=== PATIENT | male | born 1955 | race Caucasian/White ===

== ENCOUNTER → 2018-11-05 | Outpatient (CLI) | payer OTHER | END | disposition home or self-care (01) | LOC: RAD 10:35 | PROVIDERS: ATTEND Emergency Medicine | DX: R31.9 Hematuria, unspecified (principal) | CPT/HCPCS: 76770 ==

== ENCOUNTER 2019-03-29 17:07 | Inpatient (IN) | payer OTHER ==
[~2019-03-29] VITALS: Ht 188 cm; Wt 120.0 kg
[2019-03-31 07:46] VITALS: BP 162/88
== END 2019-03-31 14:00 | DRG 917 ==
LOC: ED 17:46 → EDIP 20:34 → 2N 03-30 01:23
PROVIDERS: ADMIT Internal Medicine; ATTEND Internal Medicine
DX: T42.6X1A Poisoning by other antiepileptic and sedative-hypnotic drugs, accidental (unintentional), initial encounter (principal); N17.0 Acute kidney failure with tubular necrosis; R45.851 Suicidal ideations; Y92.89 Other specified places as the place of occurrence of the external cause; E11.41 Type 2 diabetes mellitus with diabetic mononeuropathy; F12.10 Cannabis abuse, uncomplicated; F43.22 Adjustment disorder with anxiety; I10 Essential (primary) hypertension; M10.9 Gout, unspecified; M54.10 Radiculopathy, site unspecified; F41.9 Anxiety disorder, unspecified; F10.20 Alcohol dependence, uncomplicated
CPT/HCPCS: 36415; 80048; 80053; 80076; 80307; 82607; 85025; 93005; 99285; G0378; J7509; J3420